=== PATIENT | male | born 1975 | race Caucasian/White ===

== ENCOUNTER → 2017-12-27 | Outpatient (CLI) | payer OTHER ==
[~2017-12-27] MED LIST: ROSU20TA PO; TAMS0.4C38 PO
--- NOTE | 2017-12-27 10:27 | DIAGNOSTIC IMAGING REPORT ---
RIGHT KNEE RADIOGRAPHS WITH COMPARISON STANDING AP RADIOGRAPH OF THE LEFT KNEE CLINICAL HISTORY: UNILATERAL POST TRAUMA osteoarthritis KNEE COMPARISON: Right knee radiographs February 14, 2016. FINDINGS: Comparison standing AP radiograph of the left knee demonstrates mild osteophytosis within the lateral compartment. There are postoperative findings consistent with a right ACL reconstruction. No fracture or suspicious lesion is present. No definite joint effusion is noted. There is moderate tricompartmental osteophytosis of the right knee with minimal medial compartment narrowing as well as suspected patellofemoral compartment joint space narrowing. IMPRESSION: 1. Status post right ACL reconstruction. No fracture or joint effusion. 2. Moderate tricompartmental osteophytosis of the right knee with mild medial and patellofemoral compartment joint space narrowing. Electronically signed by: Saul Chau M.D. 12/27/2017 10:26 AM Dictated Date/Time: 12/27/2017 10:24 AM
== END | disposition home or self-care (01) ==
LOC: C.RAD1850 10:13
PROVIDERS: ATTEND Family Medicine
DX: M17.31 Unilateral post-traumatic osteoarthritis, right knee (principal)

== ENCOUNTER → 2018-01-19 | Outpatient (CLI) | payer OTHER | END | disposition home or self-care (01) | LOC: C.RDSM 18:43 | PROVIDERS: ATTEND Orthopaedic Surgery Sports Medicine | DX: M17.31 Unilateral post-traumatic osteoarthritis, right knee (principal) ==